=== PATIENT | female | born 1955 | race Caucasian/White ===

== ENCOUNTER 2017-10-07 07:18 | Day surgery (SDC) | payer MEDICARE, BC ==
[~2017-10-07] VITALS: Ht 170.2 cm; Wt 48.0 kg
[~2017-10-07 07:18] MED LIST: ALEN70TA5 PO; ARGI500C7 PO; BACITRACIN 50,000 UNIT ONE; BIOT25005 PO; CALC-451 PO; CHOL5000 PO; COLL1POW2 PO; EPINEPHRINE 1 MG/ML, 1ML ONE; ESTR1TAB15 PO; FISH1CAP PO; GABA300C PO; HYDR-879 PO; LEVO50TA5 PO; LIPA1CAP61 PO; LISI-167 PO; OMEP20TA62 PO; PROG100C16 PO; PSYL0.5215 PO; THROMBIN 5,000 UNIT VIAL TP ONE; VANCOMYCIN 1,000 MG ONE; [UNRECOGNIZED DRUG - MIXTURE] PO; [UNRECOGNIZED DRUG - OTHER] PO
[2017-10-07] MEDS ORDERED: LACTATED RINGERS 1,000 ML IV SCH (07:54)
[2017-10-07] MEDS ORDERED: LIDOCAINE 1%, 2ML SQ PRN (08:00)
[2017-10-07] MEDS ORDERED: LIDOCAINE 1%, 2ML ONE (08:02)
[2017-10-07] MEDS ORDERED: FENTANYL PF 100 MCG/2ML ONE ×3 (09:04→10:52)
[2017-10-07] MEDS ORDERED: MIDAZOLAM 1 MG/ML, 2ML ONE (09:04)
[2017-10-07] MEDS ORDERED: PROPOFOL 10 MG/ML, 20ML ONE (09:05)
[2017-10-07] MEDS ORDERED: ROCURONIUM 10 MG/ML,10ML ONE (09:06)
[2017-10-07] MEDS ORDERED: DEXAMETHASONE 4 MG/ML, 1ML ONE ×2 (09:06)
[2017-10-07] MEDS ORDERED: SUCCINYLCHOLINE 20 MG/ML, 10ML ONE (09:06)
[2017-10-07] MEDS ORDERED: LIDOCAINE 4%, 4 ML SYR/CANN TP ONE (09:06)
[2017-10-07] MEDS ORDERED: ONDANSETRON 2MG/ML, 2ML ONE ×2 (09:06)
[2017-10-07] MEDS ORDERED: CEFAZOLIN 1,000 MG ONE ×3 (09:06)
[2017-10-07] MEDS ORDERED: KETOROLAC 30 MG/1 ML ONE (09:31)
[2017-10-07] MEDS: BUPIVACAINE/PF 0.5% ONE ×2 (09:52→10:05)
[2017-10-07] MEDS ORDERED: LABETALOL 5MG/ML, 20ML IV PRN (10:00)
[2017-10-07] MEDS ORDERED: ACETAMINOPHEN 650 MG/20.3 ML UDC PO PRN (10:00)
[2017-10-07] MEDS ORDERED: MEPERIDINE/PF 25MG/0.5ML IVPush PRN (10:00)
[2017-10-07] MEDS ORDERED: MIDAZOLAM 1 MG/ML, 2ML IV PRN (10:00)
[2017-10-07] MEDS ORDERED: ONDANSETRON 2MG/ML, 2ML IVPush PRN (10:00)
[2017-10-07] MEDS ORDERED: OXYcodone 5 MG/5 ML ORAL.SOL UDC PO PRN (10:00)
[2017-10-07] MEDS ORDERED: PROMETHAZINE 25 MG/ML, 1ML IV PRN (10:00)
[2017-10-07] MEDS ORDERED: hydrALAzine 20 MG/ML, 1ML IV PRN (10:00)
[2017-10-07] MEDS ORDERED: HYDROmorphone 1 MG/ML, 1ML IV PRN (10:00)
[2017-10-07] MEDS ORDERED: ALBUTEROL SULFATE 2.5 MG/3 ML NPPB PRN (10:00)
[2017-10-07] MEDS ORDERED: OXYcodone 5 MG/5 ML ORAL.SOL UDC ONE (10:52)
[2017-10-07] MEDS ORDERED: ACETAMINOPHEN 650 MG/20.3 ML UDC ONE (10:52)
[2017-10-07] MEDS: FENTANYL PF 100 MCG/2ML IV PRN ×2 (10:54→11:05)
[2017-10-07] MEDS ORDERED: HYDROmorphone 2 MG/ML, 1ML ONE (11:12)
== END 2017-10-07 12:35 ==
LOC: OUT 07:18
PROVIDERS: ATTEND Neurological Surgery
DX: M48.061 Spinal stenosis, lumbar region without neurogenic claudication (principal); M54.16 Radiculopathy, lumbar region; K21.9 Gastro-esophageal reflux disease without esophagitis; Z85.820 Personal history of malignant melanoma of skin; Z98.890 Other specified postprocedural states
CPT/HCPCS: 63047; 63048; 72100; J0171; J0330; J0690; J1100; J1170; J1885; J2250; J2405; J2704; J3010; J3370; J3490; J7120

== ENCOUNTER 2020-01-16 08:16 | Day surgery (SDC) | payer MEDICARE, BC ==
[2020-01-13 08:54] LABS: ALBUMIN 3.6 g/dL (3.4-5.0); ANION GAP 6 mmol/L (5-15); CALCIUM 8.8 mg/dL (8.5-10.1); CHLORIDE 109 mmol/L (98-107)
[2020-01-13 09:00] LABS: ALANINE AMINOTRANSFERASE 27 U/L (12-78); ALKALINE PHOSPHATASE 59 U/L (45-117); BILIRUBIN,TOTAL 0.4 mg/dL (0.2-1.0); CREATININE 0.93 mg/dL (0.55-1.02); TOTAL PROTEIN 6.9 g/dL (6.4-8.2)
[~2020-01-16] VITALS: Ht 168.9 cm; Wt 52.9 kg
[~2020-01-16 08:16] MED LIST changes: -ALEN70TA5 PO; +ALEN70TA6 PO; -BACITRACIN 50,000 UNIT ONE; +BUPIVACAINE/PF 0.25% ONE; +CELE200C PO; +DIPH1TAB6 PO; +HYDR-3622 PO; -HYDR-879 PO; +NEOMY/POLYMYXIN B GU IRR. 1 ML ONE; +THERAGRAN M PO; -THROMBIN 5,000 UNIT VIAL TP ONE; -VANCOMYCIN 1,000 MG ONE
[2020-01-16] MEDS ORDERED: LACTATED RINGERS 1,000 ML IV SCH (09:01)
[2020-01-16 09:03] VITALS: BP 164/89
[2020-01-16] MEDS ORDERED: ACETAMINOPHEN 500 MG TABLET PO ONE (09:30)
[2020-01-16] MEDS ORDERED: LIDOCAINE-MPF 1%, 2ML INFIL ONE (09:30)
[2020-01-16] MEDS ORDERED: SCOPOLAMINE 1MG PATCH TD SCH (09:30)
[2020-01-16] MEDS ORDERED: DIAZEPAM 5 MG TABLET PO ONE (09:30)
[2020-01-16] MEDS ORDERED: MIDAZOLAM 1 MG/ML, 2ML ONE (09:52)
[2020-01-16] MEDS ORDERED: FENTANYL PF 250 MCG/5ML ONE (09:53)
[2020-01-16] MEDS ORDERED: LABETALOL 5MG/ML, 20ML IV PRN (11:30)
[2020-01-16] MEDS ORDERED: ONDANSETRON 2MG/ML, 2ML IV PRN (11:30)
[2020-01-16] MEDS ORDERED: LORazepam 2 MG/ML, 1ML IVPush PRN (11:30)
[2020-01-16] MEDS ORDERED: ALBUTEROL/IPRATROPIUM 2.5MG/0.5MG, 3 ML NPPB PRN (11:30)
[2020-01-16] MEDS ORDERED: PROMETHAZINE 25 MG SUPP PR PRN (11:30)
[2020-01-16] MEDS ORDERED: hydrALAzine 20 MG/ML, 1ML IV PRN (11:30)
[2020-01-16] MEDS ORDERED: OXYcodone 5 MG/5 ML ORAL.SOL UDC PO PRN (11:30)
[2020-01-16] MEDS ORDERED: ONDANSETRON ODT 8 MG PO PRN (11:30)
[2020-01-16] MEDS ORDERED: LIDOCAINE 4%, 4 ML SYR/CANN TP ONE (11:31)
[2020-01-16] MEDS ORDERED: LIDOCAINE-MPF 2% ,5ML ONE (11:31)
[2020-01-16] MEDS ORDERED: ROCURONIUM 10MG/ML,5ML ONE (12:01)
[2020-01-16] MEDS ORDERED: NEOSTIGMINE 1 MG/ML, 10ML ONE (12:01)
[2020-01-16] MEDS ORDERED: GLYCOPYRROLATE 0.2MG/1ML, 5ML ONE (12:01)
[2020-01-16] MEDS ORDERED: SUCCINYLCHOLINE 20 MG/ML, 10ML ONE (12:01)
[2020-01-16] MEDS ORDERED: PROPOFOL 10 MG/ML, 20ML ONE (12:01)
[2020-01-16] MEDS ORDERED: ONDANSETRON 2MG/ML, 2ML ONE (12:01)
[2020-01-16] MEDS ORDERED: DEXAMETHASONE 4 MG/ML, 1ML ONE (12:01)
[2020-01-16] MEDS ORDERED: CEFAZOLIN 1,000 MG ONE (12:01)
[2020-01-16] MEDS ORDERED: FENTANYL PF 100 MCG/2ML ONE ×2 (13:17→13:45)
[2020-01-16] MEDS ORDERED: OXYcodone 5 MG/5 ML ORAL.SOL UDC ONE (13:18)
[2020-01-16] MEDS: FENTANYL PF 100 MCG/2ML IV PRN ×4 (13:19→13:56)
[2020-01-16] MEDS ORDERED: HYDROmorphone 1 MG/ML, 1ML INJ ONE (14:10)
[2020-01-16] MEDS: HYDROmorphone 2 MG/ML, 1ML IVPush PRN ×2 (14:13→14:25)
== END 2020-01-16 16:15 | disposition home or self-care (01) ==
LOC: OUT 08:16
PROVIDERS: ATTEND Obstetrics & Gynecology Female Pelvic Medicine and Reconstructive Surgery
DX: N95.0 Postmenopausal bleeding (principal); N81.2 Incomplete uterovaginal prolapse; D25.1 Intramural leiomyoma of uterus; N88.8 Other specified noninflammatory disorders of cervix uteri; N39.46 Mixed incontinence; I10 Essential (primary) hypertension; E03.9 Hypothyroidism, unspecified; Z79.890 Hormone replacement therapy; Z79.899 Other long term (current) drug therapy; Z88.1 Allergy status to other antibiotic agents; Z90.49 Acquired absence of other specified parts of digestive tract; Z98.890 Other specified postprocedural states
CPT/HCPCS: 36415; 57265; 57288; 58552; 80053; 88307; C1771; J0171; J0330; J0690; J1100; J1170; J2250; J2405; J2704; J2710; J3010; J3490; J7120